=== PATIENT | male | born 1995 | race Caucasian/White ===

== ENCOUNTER 2024-01-17 13:53 | Emergency (ER) | payer MEDICAID ==
[~2024-01-17] VITALS: Ht 182.9 cm; Wt 85.0 kg
[2024-01-17 13:56] VITALS: O2SAT 98
[2024-01-17] MEDS: SODIUM CHLORIDE 0.9% 1,000 ML IV ONE (15:09)
[2024-01-17 15:51] VITALS: BP 135/90; PULSE 112; RESP 24; TEMP 36.78072; O2SAT 100
== END 2024-01-17 16:24 | disposition home or self-care (01) ==
LOC: ER 14:04
DX: F19.10 Other psychoactive substance abuse, uncomplicated (principal)
CPT/HCPCS: 96360; 99283; J7030; Z7610